=== PATIENT | female | born 1980 | race Caucasian/White ===

== ENCOUNTER 2022-01-08 23:23 | Emergency (ER) | payer OTHER ==
[~2022-01-08] VITALS: Ht 165.1 cm; Wt 65.8 kg
[2022-01-09 01:27] LABS: Source, Urine Clean Catch
[2022-01-09 01:33] LABS: Bilirubin, Urine Neg (Neg); Blood, Urine 2+ (Neg); Glucose Qualitative, Urine Neg (Neg); Ketones, Urine Neg (Neg); Leukocyte Esterase, Urine 3+ (Neg); Nitrite, Urine Neg (Neg); Protein, Urine 2+ (Neg); Urobilinogen, Urine 1+ (Normal)
[2022-01-09 01:41] LABS: Appearance, Urine Hazy (Clear); Color, Urine Yellow (P-Yellow)
[2022-01-09 01:42] LABS: Amorphous Light (0-Heavy); Bacteria Mod /hpf; Mucus Mod (0-Heavy); Red Blood Cells, Urine 0-2 /hpf (0-2); Squamous Epithelial Cells Few /hpf (Few); White Blood Cells, Urine 50-100 /hpf (0-5)
[2022-01-09] MEDS ORDERED: CEPH500 PO (02:13)
[2022-01-09] MEDS ORDERED: METR500 PO (02:13)
[2022-01-09] MEDS ORDERED: DOXY100 PO (02:13)
[2022-01-11 01:07] LABS: CHLAMYDIA TRACHOMATIS, NAA Negative (Negative)
== END 2022-01-09 02:27 | disposition home or self-care (01) ==
LOC: ER 23:23
PROVIDERS: Emergency Medicine; Student in an Organized Health Care Education/Training Program
DX: A64 Unspecified sexually transmitted disease (principal); Z79.2 Long term (current) use of antibiotics; Z79.899 Other long term (current) drug therapy
CPT/HCPCS: 81001; 81025; 87086; 96372; 99283-25; A9270; J0696